=== PATIENT | female | born 1980 | race Caucasian/White ===

== ENCOUNTER 2021-01-14 16:10 | Emergency (ER) | payer OTHER ==
[~2021-01-14] VITALS: Ht 160 cm; Wt 62.6 kg
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
[2021-01-14] MEDS ORDERED: TDAP [DIPH/PERTUSSIS/TET] 0.5 ML VIAL IM ONE ×2 (16:29→16:30)
--- NOTE | 2021-01-14 16:38 | NUR ---
urine sent to lab.
--- NOTE | 2021-01-14 17:12 | NUR ---
taken to ct.
[2021-01-14 17:48] VITALS: BP 121/77
--- NOTE | 2021-01-14 17:49 | NUR ---
Patient discharged to home in stable condition. Written and verbal after care instructions given. Patient verbalizes understanding of instruction.
== END 2021-01-14 17:49 | disposition home or self-care (01) ==
LOC: ER 16:10
DX: S50.312A Abrasion of left elbow, initial encounter (principal); S70.212A Abrasion, left hip, initial encounter; S09.8XXA Other specified injuries of head, initial encounter; V19.88XA Pedal cyclist (driver) (passenger) injured in other specified transport accidents, initial encounter; Y93.55 Activity, bike riding; Y92.89 Other specified places as the place of occurrence of the external cause; Y99.8 Other external cause status
CPT/HCPCS: 70450-TC; 72125-TC; 84703-TC; 90715